=== PATIENT | male | born 1985 | race Caucasian/White ===

== ENCOUNTER 2018-03-18 18:46 | Emergency (ER) | payer MEDICAID ==
[~2018-03-18] VITALS: Ht 175.3 cm; Wt 83.5 kg
[2018-03-18 18:56] VITALS: BP 118/85
[2018-03-18] MEDS ORDERED: CLIN300C85 PO (20:45)
[2018-03-18] MEDS ORDERED: IBUP-1984 PO (20:46)
== END 2018-03-18 20:54 | disposition home or self-care (01) ==
LOC: ER 18:46
DX: K08.89 Other specified disorders of teeth and supporting structures (principal); F17.200 Nicotine dependence, unspecified, uncomplicated; Z88.0 Allergy status to penicillin
CPT/HCPCS: 99283